=== PATIENT | male | born 1965 | race Native Hawaiian/Other Pacific Islander ===

== ENCOUNTER 2024-08-16 12:12 | Emergency (ER) | payer SELFPAY ==
[2024-08-16 12:15] VITALS: BP 188/112
[2024-08-16 12:41] LABS: % Basophils 0.7 % (0-2); % Eosinophils 1.4 % (0-6); % Immature Granulocytes 0.7 % (0-0.5); % Lymphocytes 20.5 % (20.5-51.1); % Monocytes 9.1 % (1.7-9.3); % Neutrophils 67.6 % (42.2-75.2); Absolute Basophils 0.1 10^3/uL (0-0.2); Absolute Eosinophils 0.1 10^3/uL (0-0.7); Absolute Immature Granulocytes 0.1 10^3/uL (0-0.05); Absolute Lymphocytes 1.5 10^3/uL (1.2-3.4); Absolute Monocytes 0.7 10^3/uL (0.1-0.6); Absolute Neutrophils 4.9 10^3/uL (1.4-6.5); Hematocrit 44.4 % (39.0-52.0); Hemoglobin 13.7 g/dL (13.0-18.0); Mean Corp Hgb Conc. 30.9 g/dL (33.0-37.0); Mean Corpuscular Hgb 21.7 pg (27.0-31.0); Mean Corpuscular Volume 70.5 fL (80.0-94.0); Mean Platelet Volume 10.3 fL (7.4-10.4); Nucleated Red Blood Cells % 0 % (-); Platelet Count 219 10^3/uL (130-400); Red Cell Dist. Width 17.4 % (11.5-14.5); White Blood Cell Count 7.2 10^3/uL (4.8-10.8)
[2024-08-16 12:57] LABS: ALT (SGPT) 62 U/L (0-50); AST (SGOT) 37 U/L (17-59); Albumin 4.1 g/dl (3.5-5.0); Alkaline Phosphatase 67 U/L (38-126); Blood Urea Nitrogen 20 mg/dl (9-20); Calcium 9.9 mg/dl (8.4-10.2); Carbon Dioxide 26 mmol/L (22-30); Chloride 105 mmol/L (98-107); Glucose 143 mg/dl (70-99); Potassium 4.9 mmol/L (3.5-5.1); Sodium 138 mmol/L (135-145); Total Bilirubin 0.6 mg/dl (0.2-1.3); Total Protein 7.1 g/dl (6.3-8.2); eGFR > 60.00
[2024-08-16 13:39] VITALS: BMI 26.1
[2024-08-16 14:00] VITALS: BP 149/106
--- NOTE | 2024-08-16 14:22 | ED.GENMED ---
History of Present Illness
General
Chief Complaint: Fainting Sensation
Time Seen by Provider: 08/16/24 14:03
History of Present Illness
History of Present Illness:
59-year-old male presents the emergency department for evaluation of 2 episodes of abrupt onset of dizziness/near syncope occurring today. Both occurred while at rest. They lasted 5 seconds or less each. No chest pain or palpitations with these.
Currently feels fine with no complaints
Review of Systems
Review of Systems
Allergies reviewed?: Yes
All Other Systems: ROS reviewed and negative except as documented in HPI and ROS
Phy Exam
Physical Exam
Physical Exam:
GEN: Well appearing, NAD, WDWN
HEENT: Oral mucosa moist, no scleral icterus, no nasal congestion
Cardiac: Regular rate and rhythm, no murmurs
Lung: No respiratory distress, no tachypnea
MSK: No gross deformity or injuries
Skin: Good color, no pallor or jaundice, no rashes
Neuro: AO x3; CN II-XII grossly intact. BUE strength 5/5 in all canales, sensation intact and symmetric. BLE strength 5/5 in all canales, sensation intact and symmetric
Psych: Calm, cooperative
Course
Orders/Labs/Results
Orders:
Orders
08/16/24 12:15
EKG [Electrocardiogram (*1)] Urgent
Reason for Study: Vertigo / Dizzy
EKG- Treatment ONCE
08/16/24 12:23
Complete Blood Count/With Diff Urgent
Comprehensive Metabolic Panel Urgent
Abnormal Lab Results
08/16/24
12:23
RBC 6.30 H 10^6/uL
(4.70-6.10)
MCV 70.5 L fL
(80.0-94.0)
MCH 21.7 L pg
(27.0-31.0)
MCHC 30.9 L g/dL
(33.0-37.0)
RDW 17.4 H %
(11.5-14.5)
Abs Immat Gran (auto) 0.1 H 10^3/uL
(0-0.05)
Absolute Monos (auto) 0.7 H 10^3/uL
(0.1-0.6)
Immature Gran % 0.7 H %
(0-0.5)
Glucose 143 H mg/dl
(70-99)
ALT 62 H U/L
(0-50)
08/16/24 12:23
08/16/24 12:23
Vital Signs
Initial and Last Documented VS:
Initial Vital Signs
Temp Pulse Resp BP Pulse Ox
98.9 F 80 18 188/112 99
08/16/24 12:15 08/16/24 12:15 08/16/24 12:15 08/16/24 12:15 08/16/24 12:15
Last Documented Vital Signs
Temp Pulse Resp BP Pulse Ox
98.9 F 79 12 149/106 100
08/16/24 12:15 08/16/24 14:15 08/16/24 14:15 08/16/24 14:00 08/16/24 14:15
MDM/Problems Addressed
MDM/Problems Addressed:
Clinically stable in the ED with unremarkable workup. Recommend outpatient cardiology follow-up for Holter monitor
*Critical Care Note
Total Time (30-74mins, 75-104mins- exclusive of procedures): Not Applicable
ED Attending Note
-
Portions of this chart may have been created with voice recognition software.� Occasional wrong word or��sound alike� substitutions may have occurred due to the inherent limitations of voice recognition software.
Discharge Plan
Departure
Patient Disposition: Home (Routine Discharge)
Date of Disposition: 08/16/24
Time of Disposition: 14:22
Patient with high blood pressure during this ER visit?: No
Discharge Problem:
Near syncope
Instructions: Near Fainting (DC)
Referrals:
Ernie Sam DO [Family Provider] -
Ronan Mckay MD [Active] - Call in 1-3 days for appt
Interventions
Interventions:
*Risk Screen - Suicide Last Done: 08/16/24 12:15
*General Assessment Last Done: 08/16/24 12:15
*Neglect/Abuse Screening Last Done: 08/16/24 12:15
*ED- Fall Risk Assessment Last Done: 08/16/24 12:15
*ED COVID-19 Vaccine History Last Done: 08/16/24 12:15
*Nursing Disposition Last Done: 08/16/24 14:30
ED- Cardiac Assessment Last Done: 08/16/24 13:41
ED- Neurological Assessment Last Done: 08/16/24 13:41
Discharge Date and Time
Discharge Date/Time: 08/16/24 14:33
Print Language: INDONESIAN
== END 2024-08-16 14:33 | disposition home or self-care (01) ==
LOC: EMR 12:12
PROVIDERS: Emergency Medicine; EMERGENCY PHYSICIAN Emergency Medicine; FAMILY PHYSICIAN Family Medicine
DX: R55 Syncope and collapse (principal)
CPT/HCPCS: 99283; 80053; 85025; 93005